=== PATIENT | male | born 1940 | race Caucasian/White ===

== ENCOUNTER 2024-04-03 11:28 | Emergency (ER) | payer MEDICARE, BC ==
[~2024-04-03] VITALS: Ht 180.3 cm; Wt 85.3 kg
[2024-04-03] MEDS ORDERED: VAZALORE81 MG PO (11:50)
[2024-04-03] MEDS ORDERED: CARVEDILOL3.125 MG PO (11:51)
[2024-04-03] MEDS ORDERED: CITALOPRAM HBR10 MG PO (11:51)
[2024-04-03] MEDS ORDERED: VITAMIN B-121000 MC2 PO (11:52)
[2024-04-03] MEDS ORDERED: DONEPEZIL HCL10 MG PO (11:55)
[2024-04-03] MEDS ORDERED: ALEVE220 M1 PO (11:56)
[2024-04-03] MEDS ORDERED: PRAVASTATIN SOD80 MG PO (11:57)
[2024-04-03] MEDS ORDERED: ELIQUIS5 MG PO (11:58)
[2024-04-03 12:20] LABS: EOS # 0.02 K/mm3 (0.04-0.40); EOS % 0.3 % (0.0-4.0); HEMATOCRIT 43.3 % (42.0-52.0); HEMOGLOBIN 14.2 g/dL (13.5-18.0); LYMPH# 0.93 K/mm3 (1.50-4.00); MEAN CELL VOLUME 98 fl (78-100); MEAN CORPUSCULAR HEMOGLOBIN 32 pg (27-31); MEAN CORPUSCULAR HGB CONC 33 g/dL (33-37); MEAN PLATELET VOLUME 11.5 fl (7.4-10.4); MONO # 0.58 K/mm3 (0.20-0.80); NEU # 4.84 K/mm3 (1.40-6.50); PLATELET COUNT 153 K/mm3 (130-400); RED BLOOD COUNT 4.42 M/mm3 (4.20-5.60); RED CELL DISTRIBUTION WIDTH 12.6 % (11.5-14.5); WHITE BLOOD COUNT 6.4 K/mm3 (4.8-10.8)
[2024-04-03 12:24] LABS: ALBUMIN 3.5 g/dL (3.4-4.8)
[2024-04-03 12:25] LABS: CALCIUM 8.9 mg/dL (8.3-10.5)
[2024-04-03 12:27] LABS: TOTAL PROTEIN 6.2 g/dL (6.2-8.1)
[2024-04-03 12:28] LABS: TOTAL BILIRUBIN 0.5 mg/dL (0.2-1.2)
[2024-04-03] MEDS ORDERED: NS 1,000 ML IV SCH (13:45)
[2024-04-03 16:00] VITALS: BP 139/77
== END 2024-04-03 15:50 ==
LOC: ED 11:28
PROVIDERS: Family Medicine
DX: F03.90 Unspecified dementia, unspecified severity, without behavioral disturbance, psychotic disturbance, mood disturbance, and anxiety (principal); E86.0 Dehydration; R53.81 Other malaise; R63.0 Anorexia; Z79.82 Long term (current) use of aspirin; Z79.01 Long term (current) use of anticoagulants
CPT/HCPCS: J7030; J7120